=== PATIENT | female | born 2000 | race Caucasian/White ===

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

== ENCOUNTER 2022-03-31 08:04 | Inpatient (IN) | payer OTHER ==
[~2022-03-31] VITALS: Ht 162.6 cm; Wt 58.4 kg
[2022-03-31 09:16] LABS: HEMATOCRIT 42.4 % (36.0-47.0); HEMOGLOBIN 13.7 g/dl (12.0-15.5); MEAN CORPUSCULAR HEMOGLOBIN 28.8 pg (27.0-33.0); MEAN CORPUSCULAR HGB CONC 32.3 g/dl (32.0-36.5); MEAN CORPUSCULAR VOLUME 89.1 fl (80.0-96.0); PLATELET COUNT, AUTOMATED 202 10^3/uL (150-450); RED BLOOD COUNT 4.76 10^6/uL (4.00-5.40); WHITE BLOOD COUNT 4.4 10^3/uL (4.0-10.0)
[2022-03-31 09:35] LABS: HCG, SERUM QUALITATIVE NEGATIVE (NEGATIVE)
[2022-03-31 09:39] LABS: RSV AMPLIFICATION NEGATIVE (NEGATIVE)
[2022-03-31 09:53] LABS: ACETAMINOPHEN LEVEL < 2.0 UG/ML (10.0-30.0); ALBUMIN 3.9 GM/DL (3.2-5.2); ALT/SGPT 32 U/L (12-78); BILIRUBIN,DIRECT < 0.1 MG/DL (0.0-0.2); BILIRUBIN,TOTAL 0.3 MG/DL (0.2-1.0); BLOOD UREA NITROGEN 8 MG/DL (7-18); CALCIUM LEVEL 8.8 MG/DL (8.5-10.1); CARBON DIOXIDE LEVEL 29 MEQ/L (21-32); CHLORIDE LEVEL 107 MEQ/L (98-107); CREATININE FOR GFR 0.73 MG/DL (0.55-1.30); ETHYL ALCOHOL (ETHANOL) < 0.003 % (0.000-0.010); GLUCOSE, FASTING 90 MG/DL (70-100); SALICYLATE LEVEL < 1.7 MG/DL (5.0-30.0); SODIUM LEVEL 139 MEQ/L (136-145); TOTAL PROTEIN 7.5 GM/DL (6.4-8.2)
[2022-03-31 11:02] LABS: AMPHETAMINES LEVEL URINE NEGATIVE (NEGATIVE); BARBITURATES URINE NEGATIVE (NEGATIVE); BENZODIAZEPINES URINE NEGATIVE (NEGATIVE); CANNABINOIDS URINE NEGATIVE (NEGATIVE); COCAINE METABOLITE URINE NEGATIVE (NEGATIVE); METHADONE URINE NEGATIVE (NEGATIVE); OPIATES URINE NEGATIVE (NEGATIVE); PHENCYCLIDINE URINE NEGATIVE (NEGATIVE)
[2022-03-31] MEDS ORDERED: HOME MED LIST COMPLETE! XX SCH (16:20)
[2022-04-01] MEDS: NICOTINE 21MG/24HR 1 EA TRANSDERMAL TD SCH (09:00)
[2022-04-01] MEDS ORDERED: traZODone 50 MG TAB PO PRN (13:30)
[2022-04-01] MEDS ORDERED: diphenhydrAMINE 25MG CAP PO PRN (13:30)
[2022-04-01] MEDS ORDERED: MOM 30ML SUSPENSION UDC PO PRN (13:30)
[2022-04-01] MEDS ORDERED: IBUPROFEN 400MG TAB PO PRN (13:30)
[2022-04-01] MEDS ORDERED: MAALOX 30 ML SUSP *UDC PO PRN (13:30)
[2022-04-01 18:47] VITALS: BP 142/84
[2022-04-02 06:20] VITALS: BP 116/59
[2022-04-02] MEDS: NICOTINE 21MG/24HR 1 EA TRANSDERMAL TD SCH (09:00)
[2022-04-02] MEDS ORDERED: ATOMOXETINE HCL 40 MG CAP (STRATTERA) PO SCH (09:00)
[2022-04-02] MEDS: ATOMOXETINE HCL 40 MG CAP (STRATTERA) PO SCH (09:00)
[2022-04-02] MEDS ORDERED: hydrOXYzine 50 MG TAB PO PRN (11:00)
[2022-04-02] MEDS ORDERED: INFLUENZA QUADRIVALENT PF VACCINE 0.5ML SYRINGE IM.IMMUN ONE (16:00)
[2022-04-02 16:14] VITALS: BP 129/66
[2022-04-02] MEDS: fluvoxaMINE MALEATE 50 MG TAB PO SCH (21:37)
[2022-04-03 06:06] VITALS: BP 129/77
[2022-04-03] MEDS: NICOTINE 21MG/24HR 1 EA TRANSDERMAL TD SCH (08:44)
[2022-04-03] MEDS: ATOMOXETINE HCL 40 MG CAP (STRATTERA) PO SCH (08:44)
[2022-04-03 18:28] VITALS: BP 118/72
[2022-04-03] MEDS: fluvoxaMINE MALEATE 50 MG TAB PO SCH (20:50)
[2022-04-04 05:58] VITALS: BP 120/63
[2022-04-04] MEDS: ATOMOXETINE HCL 40 MG CAP (STRATTERA) PO SCH (08:41)
[2022-04-04 16:01] VITALS: BP 136/73
[2022-04-04] MEDS: fluvoxaMINE MALEATE 50 MG TAB PO SCH (21:26)
[2022-04-04 23:30] VITALS: BP 130/94
[2022-04-05 06:11] VITALS: BP 138/62
[2022-04-05] MEDS: ATOMOXETINE HCL 40 MG CAP (STRATTERA) PO SCH ×2 (09:00→12:06)
[2022-04-05 16:15] VITALS: BP 118/59
[2022-04-05] MEDS: ARIPiprazole 2 MG TAB PO SCH (21:00)
[2022-04-06 06:25] VITALS: BP 141/79
[2022-04-06] MEDS: ATOMOXETINE HCL 40 MG CAP (STRATTERA) PO SCH (09:24)
[2022-04-06 16:02] VITALS: BP 138/81
[2022-04-06] MEDS: ARIPiprazole 2 MG TAB PO SCH (21:00)
[2022-04-07 06:11] VITALS: BP 130/69
[2022-04-07] MEDS: ATOMOXETINE HCL 40 MG CAP (STRATTERA) PO SCH ×2 (10:22→11:39)
[2022-04-07] MEDS: MULTIVITAMINS/MINERALS THERAP 1 TAB PO SCH (15:05)
[2022-04-07 18:03] VITALS: BP 128/68
[2022-04-07] MEDS: ARIPiprazole 2 MG TAB PO SCH (21:02)
[2022-04-08 06:25] VITALS: BP 122/66
[2022-04-08] MEDS ORDERED: ABIL1TAB13 PO (09:00)
[2022-04-08] MEDS ORDERED: ATOM40CA9 PO (09:00)
[2022-04-08] MEDS: MULTIVITAMINS/MINERALS THERAP 1 TAB PO SCH (09:49)
[2022-04-08] MEDS: ATOMOXETINE HCL 40 MG CAP (STRATTERA) PO SCH (09:49)
== END 2022-04-08 11:54 | disposition home or self-care (01) | DRG 751 ==
LOC: M ED 08:04 → M ED INP 04-01 13:26 → EDSEX 04-01 13:26 → M PSY 04-01 17:19
PROVIDERS: ADMIT Psychiatry & Neurology Psychiatry; ATTEND Psychiatry & Neurology Psychiatry
DX: F33.1 Major depressive disorder, recurrent, moderate (principal); F43.10 Post-traumatic stress disorder, unspecified; F12.90 Cannabis use, unspecified, uncomplicated; F60.3 Borderline personality disorder; F50.00 Anorexia nervosa, unspecified; F44.9 Dissociative and conversion disorder, unspecified; F41.9 Anxiety disorder, unspecified; R45.851 Suicidal ideations; Z91.410 Personal history of adult physical and sexual abuse; R45.850 Homicidal ideations

== ENCOUNTER 2022-05-10 13:18 | Inpatient (IN) | payer OTHER ==
[~2022-05-10] VITALS: Ht 162.6 cm; Wt 56.8 kg
[~2022-05-10 13:18] MED LIST changes: +ABIL1TAB13 PO; +ATOM40CA9 PO
[2022-05-10 14:59] LABS: HEMATOCRIT 42.5 % (36.0-47.0); HEMOGLOBIN 13.5 g/dl (12.0-15.5); MEAN CORPUSCULAR HEMOGLOBIN 28.7 pg (27.0-33.0); MEAN CORPUSCULAR HGB CONC 31.8 g/dl (32.0-36.5); MEAN CORPUSCULAR VOLUME 90.4 fl (80.0-96.0); PLATELET COUNT, AUTOMATED 226 10^3/uL (150-450)
[2022-05-10 15:35] LABS: RSV AMPLIFICATION NEGATIVE (NEGATIVE)
[2022-05-10 15:42] LABS: ACETAMINOPHEN LEVEL < 2.0 UG/ML (10.0-20.0); ALBUMIN 4.2 G/DL (3.2-5.2); ALT/SGPT 16 U/L (7.0-40); BILIRUBIN,DIRECT < 0.1 MG/DL (<0.4); BILIRUBIN,TOTAL 0.3 MG/DL (0.3-1.2); BLOOD UREA NITROGEN 8 MG/DL (9-23); CALCIUM LEVEL 9.8 MG/DL (8.5-10.1); CARBON DIOXIDE LEVEL 28 MMOL/L (20-31); CHLORIDE LEVEL 106 MMOL/L (98-107); CREATININE FOR GFR 0.57 MG/DL (0.55-1.30); ETHYL ALCOHOL (ETHANOL) 0.003 % (0.000-0.010); GLUCOSE, FASTING 97 MG/DL (60-100); POTASSIUM SERUM 4.1 MMOL/L (3.5-5.1); SODIUM LEVEL 141 MMOL/L (136-145); THYROID STIMULATING HORMONE 1.139 uIU/ML (0.48-4.17); TOTAL PROTEIN 6.8 G/DL (5.7-8.2)
[2022-05-10 16:10] LABS: SALICYLATE LEVEL < 3.0 MG/DL (<30)
[2022-05-10 16:16] LABS: HCG, SERUM QUALITATIVE NEGATIVE (NEGATIVE)
[2022-05-10] MEDS ORDERED: ARIP1TAB4 PO (17:03)
[2022-05-10] MEDS ORDERED: ATOM40CA2 PO (17:03)
[2022-05-10] MEDS ORDERED: HOME MED LIST COMPLETE! XX SCH (17:05)
[2022-05-10 17:14] LABS: AMPHETAMINES LEVEL URINE NEGATIVE (NEGATIVE); BARBITURATES URINE NEGATIVE (NEGATIVE); BENZODIAZEPINES URINE NEGATIVE (NEGATIVE); CANNABINOIDS URINE NEGATIVE (NEGATIVE); COCAINE METABOLITE URINE NEGATIVE (NEGATIVE); METHADONE URINE NEGATIVE (NEGATIVE); OPIATES URINE NEGATIVE (NEGATIVE); PHENCYCLIDINE URINE NEGATIVE (NEGATIVE)
[2022-05-10] MEDS ORDERED: ARIPiprazole 2 MG TAB PO ONE (20:00)
[2022-05-11] MEDS ORDERED: ATOMOXETINE HCL 40 MG CAP (STRATTERA) PO ONE (14:10)
[2022-05-11] MEDS ORDERED: ARIPiprazole 2 MG TAB PO SCH (21:00)
[2022-05-12] MEDS ORDERED: ATOMOXETINE HCL 40 MG CAP (STRATTERA) PO SCH (09:00)
[2022-05-12 10:55] LABS: RSV AMPLIFICATION NEGATIVE (NEGATIVE)
[2022-05-12] MEDS ORDERED: MOM 30ML SUSPENSION UDC PO PRN (12:40)
[2022-05-12] MEDS ORDERED: diphenhydrAMINE 25MG CAP PO PRN (12:40)
[2022-05-12] MEDS ORDERED: traZODone 50 MG TAB PO PRN (12:40)
[2022-05-12] MEDS ORDERED: MAALOX 30 ML SUSP *UDC PO PRN (12:40)
[2022-05-12] MEDS ORDERED: ARIPiprazole 2 MG TAB PO SCH (21:00)
[2022-05-13 06:31] VITALS: BP 128/60
[2022-05-13] MEDS: ATOMOXETINE HCL 40 MG CAP (STRATTERA) PO SCH (07:57)
[2022-05-13] MEDS: NICOTINE 21MG/24HR 1 EA TRANSDERMAL TD SCH (07:57)
[2022-05-13] MEDS ORDERED: INFLUENZA QUADRIVALENT PF VACCINE 0.5ML SYRINGE IM.IMMUN ONE (12:00)
[2022-05-13] MEDS ORDERED: ALBUTEROL 90 MCG/ACT 8GM HFA INHALER INH PRN (15:30)
[2022-05-13 16:19] VITALS: BP 116/59
[2022-05-14 06:10] VITALS: BP 125/67
[2022-05-14] MEDS: NICOTINE 21MG/24HR 1 EA TRANSDERMAL TD SCH (07:57)
[2022-05-14] MEDS: ATOMOXETINE HCL 40 MG CAP (STRATTERA) PO SCH (07:58)
[2022-05-14] MEDS ORDERED: ACETAMINOPHEN TAB 650MG DOSE (2X325MG) PO PRN (10:05)
[2022-05-14 18:10] VITALS: BP 108/76
[2022-05-14] MEDS ORDERED: MIRALAX *UNIT DOSE* 17GM PACKET PO PRN (20:25)
[2022-05-15 06:38] VITALS: BP 123/56
[2022-05-15] MEDS: ATOMOXETINE HCL 40 MG CAP (STRATTERA) PO SCH (08:24)
[2022-05-15] MEDS: NICOTINE 21MG/24HR 1 EA TRANSDERMAL TD SCH (08:24)
[2022-05-15 18:00] VITALS: BP 90/52
[2022-05-15 21:32] VITALS: BP 115/61
[2022-05-16 06:51] VITALS: BP 119/60
[2022-05-16] MEDS: ATOMOXETINE HCL 40 MG CAP (STRATTERA) PO SCH (08:54)
[2022-05-16] MEDS ORDERED: ABIL1TAB11 PO (10:23)
[2022-05-16] MEDS ORDERED: TRAZ-252 PO (10:23)
== END 2022-05-16 11:18 | disposition home or self-care (01) | DRG 751 ==
LOC: M ED 15:24 → M ED INP 05-12 12:40 → M PSY 05-12 17:08
PROVIDERS: ADMIT Student in an Organized Health Care Education/Training Program; ATTEND Psychiatry & Neurology Psychiatry
DX: F33.1 Major depressive disorder, recurrent, moderate (principal); F43.9 Reaction to severe stress, unspecified; F60.89 Other specific personality disorders; F60.3 Borderline personality disorder; F50.00 Anorexia nervosa, unspecified; F64.0 Transsexualism; R45.851 Suicidal ideations; Z62.810 Personal history of physical and sexual abuse in childhood; F12.90 Cannabis use, unspecified, uncomplicated; Z91.51 Personal history of suicidal behavior; Z20.822 Contact with and (suspected) exposure to COVID-19; G40.909 Epilepsy, unspecified, not intractable, without status epilepticus; Z56.0 Unemployment, unspecified; Z79.899 Other long term (current) drug therapy; F17.200 Nicotine dependence, unspecified, uncomplicated; Z63.0 Problems in relationship with spouse or partner

== ENCOUNTER → 2022-11-13 | Outpatient (CLI) | payer OTHER ==
[~2022-11-13] MED LIST changes: +ABIL1TAB11 PO; +ARIP1TAB4 PO; +ATOM40CA2 PO; +TRAZ-252 PO
[2022-11-13 18:05] LABS: BASO # 0.1 10^3/uL (0.0-0.2); BASO % 1.1 % (0.0-1.0); EOS # 0.2 10^3/uL (0.0-0.5); EOS % 2.7 % (0.0-3.0); HEMATOCRIT 39.8 % (36.0-47.0); HEMOGLOBIN 13.2 g/dl (12.0-15.5); LYMPH # 1.9 10^3/uL (1.5-5.0); LYMPH % 32.9 % (24.0-44.0); MEAN CORPUSCULAR HEMOGLOBIN 28.4 pg (27.0-33.0); MEAN CORPUSCULAR HGB CONC 33.2 g/dl (32.0-36.5); MEAN CORPUSCULAR VOLUME 85.8 fl (80.0-96.0); MONO # 0.4 10^3/uL (0.0-0.8); MONO % 7.8 % (2.0-8.0); NEUTROPHILS # 3.1 10^3/uL (1.5-8.5); NEUTROPHILS % 55.1 % (36.0-66.0); PLATELET COUNT, AUTOMATED 196 10^3/uL (150-450); RED BLOOD COUNT 4.64 10^6/uL (4.00-5.40); WHITE BLOOD COUNT 5.6 10^3/uL (4.0-10.0)
[2022-11-13 18:28] LABS: THYROID STIMULATING HORMONE 1.005 uIU/ML (0.48-4.17)
[2022-11-13 18:31] LABS: ALBUMIN 4.4 G/DL (3.2-5.2); ALKALINE PHOSPHATASE 73 U/L (46-116); ALT/SGPT 20 U/L (7.0-40); AST/SGOT 23 U/L (<34); BILIRUBIN,TOTAL 0.5 MG/DL (0.3-1.2); BLOOD UREA NITROGEN 10 MG/DL (9-23); CALCIUM LEVEL 8.9 MG/DL (8.5-10.1); CARBON DIOXIDE LEVEL 30 MMOL/L (20-31); CHLORIDE LEVEL 105 MMOL/L (98-107); CREATININE FOR GFR 0.67 MG/DL (0.55-1.30); FREE T4 1.18 NG/DL (0.83-1.43); GLUCOSE, FASTING 79 MG/DL (60-100); SODIUM LEVEL 141 MMOL/L (136-145)
== END ==
LOC: M PLALAB 15:30
PROVIDERS: ATTEND Nurse Practitioner Family
DX: R53.83 Other fatigue (principal); R63.5 Abnormal weight gain

== ENCOUNTER → 2023-04-08 | Outpatient (CLI) | payer OTHER | LOC: M WHC 09:10 | PROVIDERS: ATTEND Nurse Practitioner Family | DX: R10.2 Pelvic and perineal pain (principal) ==

== ENCOUNTER → 2024-05-04 | Outpatient (CLI) | payer OTHER | LOC: M WHC 13:04 | PROVIDERS: ATTEND Nurse Practitioner Family | DX: N63.20 Unspecified lump in the left breast, unspecified quadrant (principal) ==

== ENCOUNTER → 2025-01-10 | Outpatient (CLI) | payer OTHER | LOC: M WHC 10:26 | PROVIDERS: ATTEND Nurse Practitioner Family | DX: R92.8 Other abnormal and inconclusive findings on diagnostic imaging of breast (principal) ==

== ENCOUNTER → 2025-01-25 | Outpatient (CLI) | payer OTHER | LOC: M WHC 07:55 | PROVIDERS: ATTEND Nurse Practitioner Family | DX: R92.8 Other abnormal and inconclusive findings on diagnostic imaging of breast (principal) ==